=== PATIENT | female | born 1985 | race Caucasian/White ===

== ENCOUNTER 2016-10-04 19:24 | Emergency (ER) | payer OTHER ==
[2016-10-04 19:47] VITALS: BP 112/76
[2016-10-04] MEDS ORDERED: Azithromycin 250 MG Tab PO ONE (20:37)
[2016-10-04] MEDS ORDERED: cefTRIAXone 500 MG Vial IM ONE (20:37)
[2016-10-04] MEDS ORDERED: Lidocaine 2% Jelly 10 ML Urojet MUCMEM ONE (20:46)
--- NOTE | 2016-10-04 20:46 | EDM.PDOC ---
ED HPI GENERAL MEDICAL PROBLEM - General Chief Complaint: Abdominal Pain Stated Complaint: POSSIBLE BLADDER INFECTION Time Seen by Provider: 10/04/16 20:15 Source of Information: Reports: Patient History Limitations: Reports: No Limitations - History of Present Illness INITIAL COMMENTS - FREE TEXT/NARRATIVE: Mikayla is a 31 year old female who presents to the ED today with c/o burning with urination, vaginal discharged and pelvic pain for the last 2 days. Patient reports she is sexually active with her who is a paraplegic. She denies any other sexual contacts. Patient denies any fever or back pain. Onset: Gradual Duration: Day(s): (2) Lower Anterior Abdomen Pain Score (Numeric/FACES): 5 - Related Data Allergies Allergy/AdvReac Type Severity Reaction Status Date / Time No Known Allergies Allergy Verified 10/04/16 19:49 Home Meds: Home Meds NK [No Known Home Meds] 10/04/16 [History] Past Medical History - Past Health History Medical/Surgical History: Denies Medical/Surgical History Social & Family History - Tobacco Use Smoking Status *Q: Never Smoker Second Hand Smoke Exposure: No - Caffeine Use Caffeine Use: Reports: Coffee - Recreational Drug Use Recreational Drug Use: No ED ROS GENERAL - Review of Systems Review Of Systems: ROS reveals no pertinent complaints other than HPI. ED EXAM, RENAL/ - Physical Exam Exam: See Below Exam Limited By: No Limitations General Appearance: Alert, WD/WN, Anxious Respiratory/Chest: No Respiratory Distress Cardiovascular: Normal Peripheral Pulses, Regular Rate, Rhythm (Female) Exam: Adnexal Tenderness, Cervix Motion Tenderness, Vaginal Discharge, Other (friable cervix, thick cream colored vaginal discharge, ulcerations of varying size, 2-3 mm on vulvua that are extremely painful to touch) Rectal (Female) Exam: Normal Exam Back Exam: Normal Inspection Extremities: Normal Inspection Neurological: Alert, Oriented Psychiatric: Anxious, Tearful Skin Exam: Warm, Dry, Intact Course - Vital Signs Last Recorded V/S: Last Vital Signs Temp 37.0 C 10/04/16 19:45 Pulse 88 10/04/16 19:45 Resp 16 10/04/16 19:45 BP 112/76 10/04/16 19:45 Pulse Ox 96 10/04/16 19:45 Mikayla is an otherwise healthy 31 year old female who presents to the ED today with c/o burning with urination, vaginal discharge, and pelvic pain for 2 days. Patient arrives here with concerns for UTI. Urine obtained and is negative with small leukocyte esterase and otherwise unremarkable. Pelvic exam done after obtaining verbal patient consent and RN at bedside. Patient has lesions/ ulceration on Vulva that appear to be consistent with Herpes. She has thick cream colored discharged and friable cervix with CMT and adnexal tendernss, right greater than left. US was ordered. I discussed my concerns regarding STD's with patient who is tearful, she continues to report she has had no other sexual contact other than her . I did advise patient that we should treat her prophylactically for gonorrhea/ chlamydia, she is agreeable, cultures pending. Herpes culture obtained and is pending, will start anti-virals. Wet prep is negative. US negative for torsion/ovarian cysts. Discussed findings with patient, she was given initial dose of Acyclovir, 200 mg here tonight, will start her on 10 day course, 5xdaily tomorrow. Sexual precautions discussed. Patient was encouraged to f/u with PCP this next week. She was given 1% topical lidocaine for ulceration on vulva, encouraged using Desitin for barrier. Tylenol and ibuprofen as needed. Reasons to return discussed, patient is agreeable and was discharged in stable condition. - Orders/Labs/Meds Orders: Active Orders 24 hr Category Date Time Status Pelvis Non OB Comp [US] Stat Exams 10/04/16 20:28 Taken Transvaginal Non OB [US] Stat Exams 10/04/16 Taken CHLAMYDIA,AND GC BY APTIMA Stat Lab 10/04/16 20:31 Received CULTURE URINE [RM] Stat Lab 10/04/16 19:51 Received VIRAL CULTURE [MREF] Stat Lab 10/04/16 20:31 Received Labs: Laboratory Tests 10/04/16 10/04/16 Range/Units 19:40 19:40 Urine Color Yellow Urine Appearance Cloudy Urine pH 5.0 (4.5-8.0) Ur Specific [place] 1.030 (1.008-1.030) Urine Protein Trace (NEGATIVE) mg/dL Urine Glucose (UA) Normal (NEGATIVE) mg/dL Urine Ketones Negative (NEGATIVE) mg/dL Urine Occult Blood Moderate (NEGATIVE) Urine Nitrite Negative (NEGATIVE) Urine Bilirubin Small (NEGATIVE) Urine Urobilinogen 1 (NORMAL) mg/dL Ur Leukocyte Esterase Moderate (NEGATIVE) Urine RBC 0-5 (0-5) Urine WBC 0-5 (0-5) Ur Epithelial Cells Few Amorphous Sediment Rare Urine Bacteria Moderate Urine Mucus Packed Urine HCG, Qual Negative Meds: Medications Discontinued Medications Generic Name Dose Route Start Last Admin Trade Name Fermin PRN Reason Stop Dose Admin Acetaminophen 650 mg 10/04/16 20:47 10/04/16 21:07 Tylenol PO 10/04/16 20:48 650 mg ONETIME ONE Administration Acetaminophen Confirm 10/04/16 21:07 10/04/16 21:58 Tylenol Administered 10/04/16 21:08 Not Given Dose 650 mg .ROUTE .STK-MED ONE Acyclovir 200 mg 10/04/16 21:52 10/04/16 21:58 Zovirax PO 10/04/16 21:53 200 mg ONETIME ONE Administration Azithromycin 1,000 mg 10/04/16 20:37 10/04/16 21:00 Zithromax PO 10/04/16 20:38 1,000 mg ONETIME ONE Administration Ceftriaxone Sodium 250 mg 10/04/16 20:37 10/04/16 21:01 Rocephin IM 10/04/16 20:38 250 mg ONETIME ONE Administration Ibuprofen 600 mg 10/04/16 20:47 10/04/16 20:59 Motrin PO 10/04/16 20:48 600 mg ONETIME ONE Administration Lidocaine HCl 10 ml 10/04/16 20:46 10/04/16 21:00 Xylocaine 2% Jelly MUCMEM 10/04/16 20:47 10 ml ONETIME ONE Administration Lidocaine HCl Confirm 10/04/16 20:55 10/04/16 21:01 Xylocaine-Mpf 1% Administered 10/04/16 20:56 1 ml Dose Administration 5 ml .ROUTE .STK-MED ONE Departure - Departure Time of Disposition: 22:15 Disposition: Home, Self-Care 01 Condition: Good Clinical Impression: Herpes genitalis in women, Pelvic pain, Vaginal discharge - Discharge Information Instructions: Genital Herpes Forms: ED Department Discharge Additional Instructions: Mikayla, The testing for Herpes, Chlamydia and Gonorrhea are pending. You will be notified of any positive results. Take the Acyclovir as prescribed. Use the lidocaine and Desitin for pain especially apply prior to urination. Practice abstinence until all ulcerations are healed and you are finished with the Acyclovir. I hope you feel better soon and please take time to take care of yourself. I would recommend staying well hydrated, you can take Ibuprofen and Tylenol as needed for pain. - My Orders Last 24 Hours: My Active Orders 10/04/16 Transvaginal Non OB [US] Stat 10/04/16 19:51 CULTURE URINE [RM] Stat 10/04/16 20:28 Pelvis Non OB Comp [US] Stat 10/04/16 20:31 CHLAMYDIA,AND GC BY APTIMA Stat VIRAL CULTURE [MREF] Stat - Assessment/Plan Last 24 Hours: My Active Orders 10/04/16 Transvaginal Non OB [US] Stat 10/04/16 19:51 CULTURE URINE [RM] Stat 10/04/16 20:28 Pelvis Non OB Comp [US] Stat 10/04/16 20:31 CHLAMYDIA,AND GC BY APTIMA Stat VIRAL CULTURE [MREF] Stat
[2016-10-04] MEDS ORDERED: Ibuprofen 600 MG Tab PO ONE (20:47)
[2016-10-04] MEDS ORDERED: Acetaminophen Soln 650 MG/20.3 ML UD Cup PO ONE (20:47)
[2016-10-04] MEDS ORDERED: Acetaminophen Soln 650 MG/20.3 ML UD Cup ONE (21:07)
[2016-10-04] MEDS ORDERED: Acyclovir 200 MG Cap PO ONE (21:52)
== END 2016-10-04 22:50 | disposition home or self-care (01) ==
LOC: JP.ED 19:24 → MERGE 19:24 → JP.ED 22:50
DX: A60.00 Herpesviral infection of urogenital system, unspecified (principal)
CPT/HCPCS: 76830; 76856; 81001; 81025; 87086; 87210; 87252; 87254; 87491; 87591; 96372; 99284; A9270; J0696

== ENCOUNTER 2016-10-07 17:14 | Emergency (ER) | payer OTHER ==
[2016-10-07 17:35] VITALS: BP 138/90
[2016-10-07] MEDS ORDERED: HYDROmorphone 0.5 MG/0.5 ML Syringe IM ONE (18:21)
--- NOTE | 2016-10-07 18:53 | EDM.PDOC ---
ED HPI GENERAL MEDICAL PROBLEM - General Chief Complaint: Genitourinary Problem Stated Complaint: BLADDER INFECTION Time Seen by Provider: 10/07/16 18:13 Source of Information: Reports: Patient History Limitations: Reports: No Limitations - History of Present Illness INITIAL COMMENTS - FREE TEXT/NARRATIVE: History of present illness: [31-year-old female was seen here over the weekend and diagnosed with probable herpes pelvic infection or perineal infection vaginal infection. She is presenting here now with intractable pain not controlled with ibuprofen and Tylenol. She's taking her antiviral but is very miserable. She is from [place] and returning to [place] mid-October. She has an OB data integrity specialist they're to follow-up with but she is in so much pain she returned to the emergency room now for evaluation and help with this. He also has a lump that's developed that she's concerned about. No fevers or chills. No nausea or vomiting. She started her period then insertion of a tampon is very painful for her.] Review of systems: As per history of present illness and below otherwise all systems reviewed and negative. Past medical history: As per history of present illness and as reviewed below otherwise noncontributory. Surgical history: As per history of present illness and as reviewed below otherwise noncontributory. Social history: No reported history of drug or alcohol abuse. Family history: As per history of present illness and as reviewed below otherwise noncontributory. Physical exam: HEENT: Atraumatic, normocephalic, Lungs: Clear to auscultation, Heart: S1S2, regular, negative for clicks, rubs, or JVD. Abdomen: Soft, nondistended, nontender. Pelvis: Stable nontender. Genitourinary: Examination of this lump that she is concerned about is at the base of her left labia majora and to me feels like a lymph node it does not present as an abscess. It is tender 1-1/2 cm across and mobile and not fluctuant and there is no erythema overlying it. Rectal: Deferred. Extremities: Atraumatic, negative for cords or calf pain. Neurovascular unremarkable. Neuro: Awake, alert, oriented. Exam nonfocal. Diagnostics: [] Therapeutics: [Dilaudid 0.5 mg IM was given for pain.] Impression: [Herpes vaginal infection] Plan: [We are going to have her see EN[facility] MARKETING REPRES[facility]ATIVE tomorrow. I did provide her with [place] one to 2 by mouth every 3-4 hours when necessary #18. I've explained to her that the OB data integrity specialist that sees her tomorrow can send records are currently making with her OB data integrity specialist in [place] so she can have continuity of care. Her vaginal viral culture is still pending] Definitive disposition and diagnosis as appropriate pending reevaluation and review of above. Vaginal Pain Score (Numeric/FACES): 6 - Related Data Allergies Allergy/AdvReac Type Severity Reaction Status Date / Time No Known Allergies Allergy Verified 10/07/16 18:30 Home Meds: Home Meds NK [No Known Home Meds] 10/04/16 [History] Past Medical History - Past Health History Medical/Surgical History: Denies Medical/Surgical History Social & Family History - Tobacco Use Smoking Status *Q: Never Smoker Second Hand Smoke Exposure: No - Caffeine Use Caffeine Use: Reports: Coffee, Soda - Recreational Drug Use Recreational Drug Use: No ED ROS GENERAL - Review of Systems Review Of Systems: ROS reveals no pertinent complaints other than HPI. ED EXAM, RENAL/ - Physical Exam Exam: See Below Course - Vital Signs Last Recorded V/S: Last Vital Signs Temp 36.5 C 10/07/16 17:33 Pulse 109 H 10/07/16 17:33 Resp 18 10/07/16 17:33 BP 138/90 10/07/16 17:33 Pulse Ox 100 10/07/16 17:33 - Orders/Labs/Meds Meds: Medications Discontinued Medications Generic Name Dose Route Start Last Admin Trade Name Fermin PRN Reason Stop Dose Admin Hydromorphone HCl 0.5 mg 10/07/16 18:21 10/07/16 18:33 Dilaudid IM 10/07/16 18:22 0.5 mg ONETIME ONE Administration Departure - Departure Time of Disposition: 18:52 Disposition: Home, Self-Care 01 Condition: Fair Clinical Impression: Herpes genitalia Qualifiers: Herpes simplex infection site: unspecified Qualified Code(s): A60.00 - Herpesviral infection of urogenital system, unspecified - Discharge Information Forms: ED Department Discharge Additional Instructions: As we discussed he should call the [facility]ETING REPRESENT[facility] clinic tomorrow and the nurse should be providing you a phone number for this. Will be faxing them information regarding the fact that she visited here and that we wanted you to follow-up tomorrow.
== END 2016-10-07 19:00 | disposition home or self-care (01) ==
LOC: MERGE 17:14 → JP.ED 17:14
DX: A60.00 Herpesviral infection of urogenital system, unspecified (principal)
CPT/HCPCS: 96372; 99283; J1170

== ENCOUNTER 2019-10-01 23:35 | Emergency (ER) | payer OTHER ==
--- NOTE | 2019-10-02 00:33 | EDM.PDOC ---
ED HPI GENERAL MEDICAL PROBLEM - General Chief Complaint: Drug or Alcohol Abuse Stated Complaint: HIT HEAD Time Seen by Provider: 10/02/19 00:23 Source of Information: Reports: Patient, Family, RN Notes Reviewed History Limitations: Reports: Intoxication - History of Present Illness INITIAL COMMENTS - FREE TEXT/NARRATIVE: 34-year-old female presents emergency department today following head injury, she has been consuming alcohol tonight she does not want to disclose the exact mechanism of injury. She did have a brief loss of consciousness no nausea and vomiting no somnolence no neck pain at this time Upper Forehead Pain Score (Numeric/FACES): 3 - Related Data Allergies Allergy/AdvReac Type Severity Reaction Status Date / Time No Known Allergies Allergy Verified 10/02/19 00:04 Home Meds: Home Meds ALPRAZolam [Alprazolam] 1 mg PO DAILY 10/02/19 [History] Sertraline HCl 25 mg PO DAILY 10/02/19 [History] Past Medical History Psychiatric History: Reports: Anxiety, Depression Social & Family History - Tobacco Use Smoking Status *Q: Never Smoker - Caffeine Use Caffeine Use: Reports: Soda - Alcohol Use Days Per Week of Alcohol Use: 7 Number of Drinks Per Day: 1 Total Drinks Per Week: 7 - Recreational Drug Use Recreational Drug Use: Yes Drug Use in Last 12 Months: Yes Recreational Drug Type: Reports: Marijuana/Hashish Recreational Drug Use Frequency: Monthly ED ROS GENERAL - Review of Systems Review Of Systems: See Below Constitutional: Reports: No Symptoms HEENT: Reports: No Symptoms Respiratory: Reports: No Symptoms Cardiovascular: Reports: No Symptoms GI/Abdominal: Reports: No Symptoms Neurological: Reports: Headache ED EXAM, HEAD INJURY - Physical Exam Exam: See Below Exam Limited By: Intoxication General Appearance: Alert, No Apparent Distress Head: Atraumatic, Normocephalic Nexus Criteria: Evidence of Intoxication. No: Posterior, Midline Cervical Tenderness, Altered Level of Consciousness, Focal Neurological Deficit, Painful Distraction Injuries Eyes: Bilateral Eye: EOMI, Normal Inspection, PERRL Ears: Normal External Exam, Normal Canal, Hearing Grossly Normal, Normal TMs Nose: Normal Inspection, Normal Mucousa, No Blood Throat/Mouth: Normal Inspection, Normal Lips, Normal Teeth, Normal Gums, Normal Oropharynx, Normal Voice, No Airway Compromise Neck: Non-Tender, Full Range of Motion, Normal Alignment, Normal Inspection Respiratory: No Respiratory Distress Extremities: Normal Inspection, No Pedal Edema Neurologic: No Motor/Sensory Deficits, Alert, Normal Mood/Affect, Oriented x 3 Course - Vital Signs Last Recorded V/S: Last Vital Signs Temp 98.7 F 10/02/19 00:06 Pulse 71 10/02/19 00:06 Resp 16 10/02/19 00:06 BP 133/88 10/02/19 00:06 Pulse Ox 100 10/02/19 00:06 - Orders/Labs/Meds Meds: Medications Discontinued Medications Generic Name Dose Route Start Last Admin Trade Name Fermin PRN Reason Stop Dose Admin Acetaminophen 650 mg 10/02/19 01:29 10/02/19 01:36 Tylenol PO 10/02/19 01:30 650 mg NOW ONE Administration Departure - Departure Time of Disposition: 02:03 Disposition: Home, Self-Care 01 Condition: Fair Clinical Impression: Head injury Qualifiers: Encounter type: initial encounter Qualified Code(s): S09.90XA - Unspecified injury of head, initial encounter - Discharge Information Referrals: PCP,None [Primary Care Provider] - Forms: ED Department Discharge Additional Instructions: Use Tylenol or Motrin as needed for pain control, please followup with your primary care provider in 3-5 days if not better, please call return to the emergency department with worsening of symptoms. Sepsis Event Note (ED) - Evaluation Sepsis Screening Result: No Definite Risk - Focused Exam Vital Signs: Vital Signs Temp Pulse Resp BP Pulse Ox 10/02/19 00:06 98.7 F 71 16 133/88 100 10/02/19 00:03 98.7 F 71 16 133/88 100 - Assessment/Plan Plan: Assessment Acuity = acute Site and laterality = head injury Etiology = patient will not disclose Manifestations = none Location of injury = Home Lab values = CT scan head negative results provided to patient Plan Tylenol Motrin as needed for pain control follow-up primary care 3 to 5 days if not better This note was dictated using katena voice recognition software please call with any questions on syntax or grammar.
[2019-10-02] MEDS ORDERED: Acetaminophen 325 MG Tab PO ONE (01:29)
--- NOTE | 2019-10-02 01:56 | CRLCT ---
INDICATION: Head injury TECHNIQUE: CT head without contrast. COMPARISON: None FINDINGS: CSF spaces: Within normal limits for age. Brain parenchyma: The bronson-white differentiation is normal. No sign of mass, hemorrhage, or midline shift. Skull base and calvarium: The visualized paranasal sinuses and mastoid air cells demonstrate no acute or significant findings. The visualized orbits are grossly unremarkable. No skull fractures. Small frontal scalp contusion. IMPRESSION: Unremarkable noncontrast head CT. Please note that all CT scans at this facility use dose modulation, iterative reconstruction, and/or weight-based dosing when appropriate to reduce radiation dose to as low as reasonably achievable. Dictated by Lisa Bolanos MD @ Oct 02 2019 1:53AM Signed by Dr. Lisa Bolanos @ Oct 02 2019 1:54AM
[2019-10-02 04:06] VITALS: BP 130/82; PULSE 70
== END 2019-10-02 02:15 | disposition home or self-care (01) ==
LOC: EEVIPCON 23:35 → JP.ED 23:35
DX: S06.9X1A Unspecified intracranial injury with loss of consciousness of 30 minutes or less, initial encounter (principal); F10.129 Alcohol abuse with intoxication, unspecified; F41.9 Anxiety disorder, unspecified; F32.9 Major depressive disorder, single episode, unspecified; Z79.899 Other long term (current) drug therapy; W01.10XA Fall on same level from slipping, tripping and stumbling with subsequent striking against unspecified object, initial encounter
CPT/HCPCS: 70450; 99284; A9270

== ENCOUNTER 2020-12-30 10:30 | Emergency (ER) | payer OTHER ==
[2020-12-30 10:50] VITALS: BP 137/95; PULSE 97
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
[2020-12-30] MEDS ORDERED: Ketorolac 30 MG/ML SDV IM ONE (11:32)
[2020-12-30] MEDS ORDERED: Acetaminophen/HYDROcodone 325-5 MG Tab PO ONE (11:32)
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
== END 2020-12-30 13:38 | disposition home or self-care (01) ==
LOC: JP.ED 10:30
DX: S01.511A Laceration without foreign body of lip, initial encounter (principal); S16.1XXA Strain of muscle, fascia and tendon at neck level, initial encounter; S00.83XA Contusion of other part of head, initial encounter; S00.03XA Contusion of scalp, initial encounter; S80.12XA Contusion of left lower leg, initial encounter; K08.89 Other specified disorders of teeth and supporting structures; Y04.0XXA Assault by unarmed brawl or fight, initial encounter
CPT/HCPCS: 70450; 70486; 71046; 96372; 99284; A9270; J1885

== ENCOUNTER 2021-01-02 15:54 | Emergency (ER) | payer OTHER ==
[2021-01-02 17:13] VITALS: BP 181/122; PULSE 129
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
== END 2021-01-02 18:50 | disposition home or self-care (01) ==
LOC: JP.ED 15:54
DX: F41.9 Anxiety disorder, unspecified (principal); R44.3 Hallucinations, unspecified; F10.10 Alcohol abuse, uncomplicated; Z86.16 Personal history of COVID-19
CPT/HCPCS: 99283

== ENCOUNTER 2022-12-21 13:14 | Emergency (ER) | payer OTHER ==
[2022-12-21 13:57] VITALS: BP 137/98; PULSE 84
[2022-12-21] MEDS ORDERED: Ondansetron 4 MG Tab.DIS PO ONE (14:04)
[2022-12-21] MEDS ORDERED: Sodium Chloride 0.9% 1,000 ML IV ONE (14:30)
[2022-12-21] MEDS ORDERED: Sodium Chloride 0.9% 10 ML Syringe FLUSH PRN (14:30)
[2022-12-21 14:40] LABS: BASOPHILS ABSOLUTE AUTO 0.05 K/uL (0.00-0.10); BASOPHILS PERCENT AUTO 0.7 % (0.1-1.3); HEMATOCRIT 38.6 % (34.3-46.0); HEMOGLOBIN 13.5 g/dL (11.2-15.5); IMMATURE GRAN ABSOLUTE AUTO 0.01 K/uL (0.00-0.23); IMMATURE GRAN PERCENT AUTO 0.1 % (0.0-0.7); LYMPHOCYTES ABSOLUTE AUTO 1.76 K/uL (0.8-3.3); MEAN CORPUSCULAR HEMOGLOBIN 30.9 pg (31.6-35.5); MEAN CORPUSCULAR VOLUME 88.3 fL (81.4-99.0); MONOCYTES ABSOLUTE AUTO 0.52 K/uL (0.20-0.90); MONOCYTES PERCENT AUTO 7.7 % (3.3-12.6); NEUTROPHILS ABSOLUTE AUTO 4.42 K/uL (1.0-7.6); NEUTROPHILS PERCENT AUTO 65.5 % (40.0-78.1); PLATELET COUNT,PLT 237 K/uL (130-375); RED BLOOD CELL COUNT 4.37 M/uL (3.77-5.24); WHITE BLOOD CELL COUNT,WBC 6.8 K/uL (3.2-11.0)
[2022-12-21 15:01] LABS: ALANINE AMINOTRANSFERASE,ALT 33 U/L (12-78); ALBUMIN 3.8 g/dL (3.4-5.0); ALKALINE PHOSPHATASE 87 U/L (46-116); ASPARTATE AMNIOTRANSFERASE,AST 26 U/L (15-37); BILIRUBIN TOTAL 0.5 mg/dL (0.2-1.0); BLOOD UREA NITROGEN,BUN 7 mg/dL (7-18); CALCIUM 8.6 mg/dL (8.5-10.1); CARBON DIOXIDE,CO2 27 mmol/L (21-32); CHLORIDE,CL 97 mmol/L (100-108); CREATININE 0.8 mg/dL (0.6-1.0); EST CRCL DRUG DOSING (CG) 105.13 mL/min; ESTIMATED GFR 98 mL/min (>60); GLUCOSE RANDOM 90 mg/dL (74-106); PROTEIN TOTAL,TP 7.6 g/dL (6.4-8.2); SODIUM,NA 137 mmol/L (140-148)
[2022-12-21] MEDS ORDERED: Potassium Chloride 20 MEQ Tab.ER PO ONE (15:11)
== END 2022-12-21 16:17 | disposition home or self-care (01) ==
LOC: JP.ED 13:14
DX: K52.9 Noninfective gastroenteritis and colitis, unspecified (principal); Z87.891 Personal history of nicotine dependence; Z20.822 Contact with and (suspected) exposure to COVID-19
CPT/HCPCS: 36415; 80053; 85025; 87635; 96360; 99284; A9270; J3490; J7030; Q0162; U0002

== ENCOUNTER 2023-11-09 09:04 | Emergency (ER) | payer OTHER ==
[2023-11-09] MEDS ORDERED: Pantoprazole 40 MG Vial ONE (09:45)
[2023-11-09] MEDS: Sodium Chloride 0.9% 1,000 ML IV ONE (09:53)
[2023-11-09] MEDS: HYDROmorphone 0.5 MG/0.5 ML Syringe IVPUSH ONE (09:54)
[2023-11-09] MEDS: Ondansetron 4 MG/2 ML SDV IVPUSH ONE (09:54)
[2023-11-09] MEDS: Pantoprazole 80 MG in Sodium Chloride 0.9% 100 ML IV ONE (10:02)
[2023-11-09 11:53] VITALS: BP 140/90; PULSE 69
== END 2023-11-09 11:57 | disposition home or self-care (01) ==
LOC: JP.ED 09:04
DX: R19.7 Diarrhea, unspecified (principal); R11.10 Vomiting, unspecified; Z87.891 Personal history of nicotine dependence; Z79.899 Other long term (current) drug therapy
CPT/HCPCS: 96365; 96375; 99283; J1170; J2405; J2470; J3490; J7030

== ENCOUNTER 2024-03-09 12:05 | Emergency (ER) | payer OTHER ==
[2024-03-09 14:17] LABS: BASOPHILS ABSOLUTE AUTO 0.06 K/uL (0.00-0.10); BASOPHILS PERCENT AUTO 0.8 % (0.1-1.3); HEMATOCRIT 39.2 % (34.3-46.0); IMMATURE GRAN PERCENT AUTO 0.1 % (0.0-0.7); LYMPHOCYTES ABSOLUTE AUTO 1.78 K/uL (0.8-3.3); LYMPHOCYTES PERCENT AUTO 23.9 % (11.4-47.7); MEAN CORPUSCULAR HEMOGLOBIN 30.5 pg (31.6-35.5); MEAN CORPUSCULAR HGB CONC 35.7 g/dL (31.6-35.5); MEAN CORPUSCULAR VOLUME 85.4 fL (81.4-99.0); MONOCYTES ABSOLUTE AUTO 0.39 K/uL (0.20-0.90); MONOCYTES PERCENT AUTO 5.2 % (3.3-12.6); NEUTROPHILS ABSOLUTE AUTO 5.22 K/uL (1.0-7.6); PLATELET COUNT,PLT 220 K/uL (130-375); RED BLOOD CELL COUNT 4.59 M/uL (3.77-5.24); WHITE BLOOD CELL COUNT,WBC 7.5 K/uL (3.2-11.0)
[2024-03-09 14:19] LABS: IMMATURE GRAN ABSOLUTE AUTO 0.01 K/uL (0.00-0.23)
[2024-03-09 14:40] LABS: ALANINE AMINOTRANSFERASE,ALT 35 U/L (12-78); ALBUMIN 4.4 g/dL (3.4-5.0); ALKALINE PHOSPHATASE 83 U/L (46-116); ASPARTATE AMNIOTRANSFERASE,AST 40 U/L (15-37); BILIRUBIN TOTAL 0.6 mg/dL (0.2-1.0); BLOOD UREA NITROGEN,BUN 6 mg/dL (7-18); CALCIUM 8.9 mg/dL (8.5-10.1); CARBON DIOXIDE,CO2 20 mmol/L (21-32); CHLORIDE,CL 97 mmol/L (100-108); CREATININE 0.8 mg/dL (0.6-1.0); EST CRCL DRUG DOSING (CG) 103.42 mL/min; ESTIMATED GFR 97 mL/min (>60); GLUCOSE RANDOM 85 mg/dL (74-106); PROTEIN TOTAL,TP 8.7 g/dL (6.4-8.2); SODIUM,NA 135 mmol/L (140-148)
[2024-03-09 14:45] LABS: ANION GAP 20.8 mmol/L (5.0-14.0); POTASSIUM,K 2.8 mmol/L (3.6-5.2); TROPONIN I HIGH SENSITIVITY < 4.0 pg/mL (<=60.3)
[2024-03-09] MEDS: Potassium Chloride 20 MEQ Tab.ER PO ONE (14:51)
[2024-03-09] MEDS: Lactated Ringers 1,000 ML IV ONE (14:57)
[2024-03-09 14:59] VITALS: BP 157/103; PULSE 71
[2024-03-09 14:59] LABS: AMPHETAMINES SCREEN, URINE PRESUMPTIVE POSITIVE (NEGATIVE); BARBITURATE SCREEN,URINE NEGATIVE (NEGATIVE); BENZODIAZEPINES SCREEN,URINE NEGATIVE (NEGATIVE); METHADONE SCREEN, URINE NEGATIVE (NEGATIVE); METHAMPHETAMINES SCREEN, URINE NEGATIVE (NEGATIVE); OXYCODONE SCREEN,URINE NEGATIVE (NEGATIVE)
[2024-03-09 15:00] LABS: PROPOXYPHENE SCREEN,URINE NEGATIVE (NEGATIVE); THC SCREEN,URINE 50 NG/ML PRESUMPTIVE POSITIVE (NEGATIVE)
[2024-03-09] MEDS: Ondansetron 4 MG/2 ML SDV IVPUSH ONE (15:03)
[2024-03-09] MEDS: LORazepam 0.5 MG Tab PO ONE (15:39)
== END 2024-03-09 16:23 | disposition home or self-care (01) ==
LOC: JP.ED 12:05
DX: E87.6 Hypokalemia (principal); F41.9 Anxiety disorder, unspecified; Z79.899 Other long term (current) drug therapy
CPT/HCPCS: 36415; 71046; 80053; 80305; 80307; 81025; 84484; 85025; 93005; 96374; 99285; A9270; J2405; J7120; 93010; 99284

== ENCOUNTER 2024-07-13 15:14 | Emergency (ER) | payer OTHER ==
[2024-07-13 15:30] VITALS: BP 138/101; PULSE 90
[2024-07-13 16:44] LABS: BASOPHILS ABSOLUTE AUTO 0.05 K/uL (0.00-0.10); EOSINOPHILS PERCENT AUTO 0.2 % (0.0-5.4); HEMATOCRIT 39.5 % (34.3-46.0); HEMOGLOBIN 13.7 g/dL (11.2-15.5); IMMATURE GRAN PERCENT AUTO 0.2 % (0.0-0.7); LYMPHOCYTES ABSOLUTE AUTO 2.52 K/uL (0.8-3.3); LYMPHOCYTES PERCENT AUTO 48.1 % (11.4-47.7); MEAN CORPUSCULAR HEMOGLOBIN 30.1 pg (31.6-35.5); MEAN CORPUSCULAR HGB CONC 34.7 g/dL (31.6-35.5); MEAN CORPUSCULAR VOLUME 86.8 fL (81.4-99.0); MONOCYTES ABSOLUTE AUTO 0.54 K/uL (0.20-0.90); MONOCYTES PERCENT AUTO 10.3 % (3.3-12.6); NEUTROPHILS ABSOLUTE AUTO 2.11 K/uL (1.0-7.6); NEUTROPHILS PERCENT AUTO 40.2 % (40.0-78.1); PLATELET COUNT,PLT 162 K/uL (130-375); RED BLOOD CELL COUNT 4.55 M/uL (3.77-5.24); WHITE BLOOD CELL COUNT,WBC 5.2 K/uL (3.2-11.0)
[2024-07-13 16:45] LABS: EOSINOPHILS ABSOLUTE AUTO 0.01 K/uL (0.00-0.40); IMMATURE GRAN ABSOLUTE AUTO 0.01 K/uL (0.00-0.23)
[2024-07-13 17:14] LABS: CALCIUM 8.1 mg/dL (8.5-10.1); CREATININE 0.7 mg/dL (0.6-1.0); EST CRCL DRUG DOSING (CG) 117.84 mL/min; POTASSIUM,K 3.1 mmol/L (3.6-5.2)
[2024-07-13 17:15] LABS: ANION GAP 14.1 mmol/L (5.0-14.0)
== END 2024-07-13 17:34 | disposition home or self-care (01) ==
LOC: JP.ED 15:14
DX: O21.9 Vomiting of pregnancy, unspecified (principal); Z86.16 Personal history of COVID-19; Z87.891 Personal history of nicotine dependence; Z79.899 Other long term (current) drug therapy; Z3A.00 Weeks of gestation of pregnancy not specified
CPT/HCPCS: 36415; 80048; 84702; 85025; 99284